=== PATIENT | female | born 1990 | race Caucasian/White ===

== ENCOUNTER 2024-02-23 16:56 | Emergency (ER) | payer SELFPAY ==
[2024-02-23 16:57] VITALS: BP 143/69; PULSE 86; RESP 16; TEMP 36.7; O2SAT 98; BMI 38.7
--- NOTE | 2024-02-23 20:06 | ED.RN ---
called pt's name and did not respond.lwbs.
== END 2024-02-23 20:05 | disposition left against medical advice (07) ==
LOC: ED 20:18
DX: Z53.21 Procedure and treatment not carried out due to patient leaving prior to being seen by health care provider (principal)